=== PATIENT | male | born 1985 | race American Indian/Alaskan Native ===

== ENCOUNTER 2018-01-11 22:29 | Emergency (ER) | payer MEDICAID ==
--- NOTE | 2018-01-11 22:36 | EDPHY ---
H & P Stated Complaint: from arc, arc concerned pt may have w/d sz Time Seen by Provider: 01/11/18 22:34 HPI/ROS: HPI CHIEF COMPLAINT: Alcohol withdrawal, tremulous, anxiety HISTORY OF PRESENT ILLNESS: Patient is a 32-year-old male, he is an alcoholic, drinks a 5th of liquor a day. His last drink was sometime earlier this morning. Was initially at [facility] and discharged to the [facility]. He did not have any Librium there. The presents emergency room by ambulance for feeling tremulous. Anxious. He does have a history of alcohol withdrawal seizure. Past Medical History: Daily alcohol use. Alcoholism Past Surgical History: No recent surgery Social History: Daily alcohol use. Denies drug use tobacco. Family History: Noncontributory ROS REVIEW OF SYSTEMS: A comprehensive 10 point review of systems is otherwise negative aside from elements mentioned in the history of present illness. Exam Constitutional anxious, somewhat tremulous, triage nursing summary reviewed, vital signs reviewed, awake/alert. Noted to be tachycardic. Eyes normal conjunctivae and sclera, EOMI, PERRLA. HENT normal inspection, atraumatic, moist mucus membranes, no epistaxis, neck supple/ no meningismus, no raccoon eyes. Respiratory clear to auscultation bilaterally, normal breath sounds, no respiratory distress, no wheezing. Cardiovascular rate normal, regular rhythm, no murmur, no edema, distal pulses normal. Gastrointestinal soft, non-tender, no rebound, no guarding, normal bowel sounds, no distension, no pulsatile mass. Genitourinary no CVA tenderness. Musculoskeletal no midline vertebral tenderness, full range of motion, no calf swelling, no tenderness of extremities, no meningismus, good pulses, neurovascularly intact. Skin pink, warm, & dry, no rash, skin atraumatic. Neurologic tongue fasciculations present. Slight tremors with arm extension, awake, alert and oriented x 3, AAOx3, moves all 4 extremities equally, motor intact, sensory intact, CN II-XII intact, normal cerebellar, normal vision, normal speech. Psychiatric normal mood/affect. Heme/Lymph/Immune no lymphadenopathy. Differential Diagnosis: Includes but is not limited to in a particular order acute alcohol withdrawal, alcohol withdrawal seizure, electrolyte disturbance, dehydration, anxiety, Wernickies encephalopathy, vitamin deficiency Medical Decision Making: Plan for this patient IV established with IV Ativan 1 mg bolus, IV fluids 1 L normal saline, thiamine and folate. Check basic electrolytes and re-evaluate. Re-evaluation: 2320: Re-examination at this time this patient is sleeping. Patient no acute distress. Vital signs stable. Electrolytes are appropriate. Received thiamine and folate. Return precautions discussed. Librium 50 mg p.o. Provided as well as Librium take-home pack. Safe for d/c back to the [facility]. Source: Patient - Medical/Surgical History Hx Asthma: No Hx Chronic Respiratory Disease: No Hx Diabetes: No Hx Cardiac Disease: No Hx Renal Disease: No Hx Cirrhosis: No Hx Alcoholism: No Hx HIV/AIDS: No Hx Splenectomy or Spleen Trauma: No Other PMH: etoh w/d sz - Social History Smoking Status: Never smoked Constitutional: Initial Vital Signs Temperature (C) 37.3 C 01/11/18 22:32 Heart Rate 106 H 01/11/18 22:32 Respiratory Rate 18 01/11/18 22:32 Blood Pressure 158/106 H 01/11/18 22:32 O2 Sat (%) 96 01/11/18 22:32 O2 Delivery Mode Room Air Allergies/Adverse Reactions: No Known Allergies Allergy (Unverified 01/11/18 22:34) Home Medications: Medication Instructions Recorded NK [No Known Home Meds] 01/11/18 Medical Decision Making - Data Points Laboratory Results: Laboratory Results 01/11/18 22:50 01/11/18 22:50 01/11/18 01/11/18 22:50 22:50 WBC 5.98 10^3/uL 10^3/uL (3.80-9.50) RBC 4.39 10^6/uL L 10^6/uL (4.40-6.38) Hgb 13.6 g/dL L g/dL (13.7-17.5) Hct 39.1 % L % (40.0-51.0) MCV 89.1 fL fL (81.5-99.8) MCH 31.0 pg pg (27.9-34.1) MCHC 34.8 g/dL g/dL (32.4-36.7) RDW 13.2 % % (11.5-15.2) Plt Count 187 10^3/uL 10^3/uL (150-400) MPV 10.2 fL fL (8.7-11.7) Neut % (Auto) 63.4 % % (39.3-74.2) Lymph % (Auto) 28.1 % % (15.0-45.0) [place] % (Auto) 6.4 % % (4.5-13.0) Eos % (Auto) 1.3 % % (0.6-7.6) Baso % (Auto) 0.5 % % (0.3-1.7) Nucleat RBC Rel Count 0.0 % % (0.0-0.2) Absolute Neuts (auto) 3.79 10^3/uL 10^3/uL (1.70-6.50) Absolute Lymphs (auto) 1.68 10^3/uL 10^3/uL (1.00-3.00) Absolute Monos (auto) 0.38 10^3/uL 10^3/uL (0.30-0.80) Absolute Eos (auto) 0.08 10^3/uL 10^3/uL (0.03-0.40) Absolute Basos (auto) 0.03 10^3/uL 10^3/uL (0.02-0.10) Absolute Nucleated RBC 0.00 10^3/uL 10^3/uL (0-0.01) Immature Gran % 0.3 % % (0.0-1.1) Immature Gran # 0.02 10^3/uL 10^3/uL (0.00-0.10) Sodium 136 mEq/L mEq/L (135-145) Potassium 3.3 mEq/L L mEq/L (3.5-5.2) Chloride 98 mEq/L mEq/L (97-110) Carbon Dioxide 27 mEq/l mEq/l (22-31) Anion Gap 11 mEq/L mEq/L (8-16) BUN 8 mg/dL mg/dL (7-23) Creatinine 0.6 mg/dL L mg/dL (0.7-1.3) Estimated GFR > 60 Glucose 104 mg/dL H mg/dL (70-100) Calcium 8.6 mg/dL mg/dL (8.5-10.4) Medications Given: Discontinued Medications Chlordiazepoxide HCl (Librium) 50 mg PO EDNOW ONE Stop: 01/11/18 23:05 Last Admin: 01/11/18 23:14 Dose: 50 mg Folic Acid (Folic Acid) 1 mg PO EDNOW ONE Stop: 01/11/18 22:42 Last Admin: 01/11/18 23:15 Dose: 1 mg Sodium Chloride (Ns) 1,000 mls @ 0 mls/hr IV EDNOW ONE; Wide Open PRN Reason: Protocol Stop: 01/11/18 22:40 Last Admin: 01/11/18 22:46 Dose: 1,000 mls Lorazepam (Ativan Injection) 1 mg IVP EDNOW ONE Stop: 01/11/18 22:40 Last Admin: 01/11/18 22:46 Dose: 1 mg Ondansetron HCl (Zofran) 4 mg IVP EDNOW ONE Stop: 01/11/18 23:04 Last Admin: 01/11/18 23:14 Dose: 4 mg Departure - Departure Disposition: Home, Routine, Self-Care Clinical Impression: Alcohol withdrawal Qualifiers: Complication of substance-induced condition: uncomplicated Qualified Code(s): F10.230 - Alcohol dependence with withdrawal, uncomplicated Condition: Good Instructions: Alcohol Withdrawal (ED) Referrals: Patient,NotPresent [Unknown] - As per Instructions
[2018-01-11] MEDS ORDERED: LORazepam 2 MG/ML INJ IVP ONE (22:39)
[2018-01-11] MEDS ORDERED: NS 1,000 ML IV ONE (22:39)
[2018-01-11] MEDS ORDERED: FOLIC ACID 1 MG TAB PO ONE (22:41)
[2018-01-11] MEDS ORDERED: ONDANSETRON 4 MG/2 ML VIAL ONE (22:52)
[2018-01-11 22:59] LABS: PLATELET COUNT 187 10^3/uL (150-400)
[2018-01-11] MEDS ORDERED: ONDANSETRON 4 MG/2 ML VIAL IVP ONE (23:03)
[2018-01-11] MEDS ORDERED: chlordiazePOXIDE 25 MG CAP PO ONE (23:04)
[2018-01-11] MEDS ORDERED: CHLORDIAZEPOXIDE 25MG PREPK#6 BTL TAKEHOME ONE (23:04)
[2018-01-12 00:11] VITALS: BP 121/86
[2018-01-12] MEDS ORDERED: THIAMINE HCL 500 MG in NS 100 ML IV SCH (06:00)
== END 2018-01-12 00:33 | disposition home or self-care (01) ==
DX: F10.230 Alcohol dependence with withdrawal, uncomplicated (principal); E86.9 Volume depletion, unspecified
CPT/HCPCS: 96365; J2060; J2405; J3411